=== PATIENT | male | born 2000 | race Caucasian/White ===

== ENCOUNTER 2020-04-07 18:18 | Emergency (ER) | payer BC ==
[~2020-04-07] VITALS: Ht 190 cm; Wt 73.0 kg
[2020-04-07] MEDS ORDERED: LIDOCAINE 2% VISCOUS 15 ML UDC ONE (18:27)
[2020-04-07] MEDS ORDERED: ANTACID SUSP 30 ML UDC (MYLANTA) ONE (18:27)
[2020-04-07] MEDS ORDERED: LACTATED RINGERS 1,000 ML IV ONE ×2 (18:28→18:30)
[2020-04-07] MEDS ORDERED: LIDOCAINE 2% VISCOUS 15 ML UDC PO ONE (18:30)
[2020-04-07] MEDS ORDERED: PANTOPRAZOLE 40 MG (PROTONIX) VIAL IV ONE (18:30)
[2020-04-07] MEDS ORDERED: ANTACID SUSP 30 ML UDC (MYLANTA) PO ONE (18:30)
[2020-04-07 18:36] LABS: BASOPHILS # (AUTO) 0.1 10^3/uL (0.0-0.1); BASOPHILS % (AUTO) 1 % (0-10); EOSINOPHILS # (AUTO) 0.1 10^3/uL (0.0-0.3); EOSINOPHILS % (AUTO) 1 % (0-10); HEMATOCRIT 44 % (40-54); HEMOGLOBIN 14.7 g/dL (13.3-17.7); LYMPHOCYTES # (AUTO) 1.7 10^3/uL (1.0-4.0); LYMPHOCYTES % (AUTO) 13 % (12-44); MEAN CORPUSCULAR HEMOGLOBIN 30 pg (25-34); MEAN CORPUSCULAR HGB CONC 34 g/dL (32-36); MEAN CORPUSCULAR VOLUME 88 fL (80-99); MEAN PLATELET VOLUME 10.3 fL (9.0-12.2); MONOCYTES # (AUTO) 2.2 10^3/uL (0.0-1.0); MONOCYTES % (AUTO) 17 % (0-12); NEUTROPHILS # (AUTO) 9.1 10^3/uL (1.8-7.8); NEUTROPHILS % (AUTO) 69 % (42-75); PLATELET COUNT 205 10^3/uL (130-400); WHITE BLOOD COUNT 13.2 10^3/uL (4.3-11.0)
--- NOTE | 2020-04-07 18:36 | ED Chest Pain ---
General Chief Complaint: Chest Pain Stated Complaint: CHEST PAIN Nursing Triage Note: PT STATES CP NEG FLU AND RAPID COVID YESTERDAY, Z PACK GIVEN, DENIES COUGH, FEVER OR SOB, NO SORE THROAT, PT HAD COVID IN OCTOBER BUT HIS BOSSES TESTED POSITIVE RECENTLY. Nursing Sepsis Screen: No Definite Risk Source: patient History of Present Illness Date Seen by Provider: Apr 07, 2020 Time Seen by Provider: 18:21 Initial Comments PT ARRIVES VIA POV C/O MID CHEST PAIN SINCE LAST Tuesday04/03/20 PAIN IS SEVERE WHEN HE SWALLOWS--8/10 NO PAIN AT REST AND NO PAIN RIGHT NOW. STATES HE HAS NOT BEEN ABLE TO EAT ANYTHING FOR THE LAST 3 DAYS DUE TO PAIN WITH EATING/DRINKING STATES HE HAS BEEN DRINKING FLUIDS, BUT EVEN FLUIDS CAUSE SEVERE PAIN IN HIS CHEST. NO THROAT PAIN OR ACTUAL DIFFICULTY SWALLOWING NO LOSS OF TASTE OR SMELL NO COUGH OR URI SYMPTOMS NO SHORTNESS OF BREATH NO NAUSEA/VOMITING/DIARRHEA OR ABDOMINAL PAIN NO FEVER/SWEATS/CHILLS NO HEADACHE NO BODY ACHES PT IS VOIDING A NORMAL AMOUNT NO HISTORY OF SIMILAR WENT TO [facility] YESTERDAY FOR THIS PROBLEM AND HAD A NEGATIVE RAPID COVID-19 TEST AND NEGATIVE FLU TEST, AND WAS GIVEN RX FOR ZITHROMAX Z PACK-=-NOT SURE WHAT HE WAS DX WITH OR REASON FOR ANTIBIOTICS PT HAD COVID-19 INFECTION IN OCTOBER, AND HIS BOSS'S TESTED + FOR COVID-19 TODAY. PT HAS NO MEDICAL PROBLEMS, HAS HAD NO SURGERIES OF ANY KIND, DOES NOT USE TOBACCO OR ALCOHOL OR DRUGS. PCP: [facility] IN [facility] Allergies and Home Medications Allergies Coded Allergies: No Known Drug Allergies (Unverified , 04/07/20) Home Medications Pantoprazole Sodium 40 Mg Tablet.dr, 40 MG PO DAILY Prescribed by: ANTWAN FARFAN on 04/07/202042 Sucralfate 1 Gm Tablet, 1 GM PO QID Prescribed by: ANTWAN FARFAN on 04/07/202042 Patient Home Medication List Home Medication List Reviewed: Yes Review of Systems Review of Systems Constitutional: no symptoms reported; No chills, No dizziness, No fever, No malaise, No weakness EENTM: No Symptoms Reported; No Nose Congestion, No Throat Pain Respiratory: No Symptoms Reported; Denies Cough, Denies Shortness of Air Cardiovascular: See HPI, Chest Pain; Denies Edema, Denies Irregular Heart Rate, Denies Lightheadedness, Denies Palpitations, Denies Syncope Gastrointestinal: Denies Abdominal Pain, Denies Diarrhea, Denies Nausea, Denies Vomiting; Other (HAS APPETITE, BUT NOT ABLE TO EAT DUE TO SEVERE PAIN IN MID CHEST WITH EATING OR DRINKING) Genitourinary: No Symptoms Reported Musculoskeletal: no symptoms reported; No back pain Skin: no symptoms reported Psychiatric/Neurological: No Symptoms Reported; Denies Headache Endocrine: No Symptoms Reported Hematologic/Lymphatic: No Symptoms Reported Past Ytzymbr-[id number]-Yncqpe Hx Past Med/Social Hx: Reviewed and Corrections made Patient Social History Alcohol Use: Denies Use Smoking Status: Never a Smoker Recent Infectious Disease Expo: No Past Medical History Surgeries: No Respiratory: No Cardiac: No Neurological: No Genitourinary: No Gastrointestinal: No Musculoskeletal: No Endocrine: No HEENT: No Cancer: No Psychosocial: No Integumentary: No Blood Disorders: No Physical Exam Vital Signs Vital Signs - First Documented Capillary Refill : Less Than 3 Seconds Height, Weight, BMI Height: '" Weight: lbs. oz. kg; 20.00 BMI Method: General Appearance: No Apparent Distress, WD/WN, Thin, Other (DOES NOT APPEAR ILL OR TO BE IN ANY DISCOMFORT OR DISTRESS) HEENT: PERRL/EOMI, Pharynx Normal; No Pale Conjunctivae (L), No Pale Conjunctivae (R), No Scleral Icterus (L), No Scleral Icterus (R) Neck: Normal Inspection Respiratory: Chest Non Tender, Normal Breath Sounds, No Accessory Muscle Use, No Respiratory Distress Cardiovascular: No Edema, No JVD, No Murmur, Normal Peripheral Pulses, Tachycardia Gastrointestinal: Normal Bowel Sounds, No Organomegaly, No Pulsatile Mass, Non Tender, Soft Extremity: Normal Capillary Refill, Normal Inspection, Normal Range of Motion, Non Tender, No Calf Tenderness, No Pedal Edema Neurologic/Psychiatric: Alert, Oriented x3, No Motor/Sensory Deficits, Normal Mood/Affect, purchasing coordinator II-XII Norm as Tested Skin: Normal Color, Warm/Dry; No Rash Progress/Results/Core Measures Results/Orders Lab Results Laboratory Tests Test 04/07/20 18:28 04/07/20 19:10 Range/Units White Blood Count 13.2 H 4.3-11.0 10^3/uL Red Blood Count 4.97 4.30-5.52 10^6/uL Hemoglobin 14.7 13.3-17.7 g/dL Hematocrit 44 40-54 % Mean Corpuscular Volume 88 80-99 fL Mean Corpuscular Hemoglobin 30 25-34 pg Mean Corpuscular Hemoglobin Concent 34 32-36 g/dL Red Cell Distribution Width 12.0 10.0-14.5 % Platelet Count 205 130-400 10^3/uL Mean Platelet Volume 10.3 9.0-12.2 fL Immature Granulocyte % (Auto) 0 % Neutrophils (%) (Auto) 69 42-75 % Lymphocytes (%) (Auto) 13 12-44 % Monocytes (%) (Auto) 17 H 0-12 % Eosinophils (%) (Auto) 1 0-10 % Basophils (%) (Auto) 1 0-10 % Neutrophils # (Auto) 9.1 H 1.8-7.8 10^3/uL Lymphocytes # (Auto) 1.7 1.0-4.0 10^3/uL Monocytes # (Auto) 2.2 H 0.0-1.0 10^3/uL Eosinophils # (Auto) 0.1 0.0-0.3 10^3/uL Basophils # (Auto) 0.1 0.0-0.1 10^3/uL Immature Granulocyte # (Auto) 0.1 0.0-0.1 10^3/uL Prothrombin Time 14.0 12.2-14.7 SEC INR Comment 1.0 0.8-1.4 Activated Partial Thromboplast Time 31 24-35 SEC Sodium Level 137 135-145 MMOL/L Potassium Level 3.6 3.6-5.0 MMOL/L Chloride Level 99 98-107 MMOL/L Carbon Dioxide Level 25 21-32 MMOL/L Anion Gap 13 5-14 MMOL/L Blood Urea Nitrogen 13 7-18 MG/DL Creatinine 1.03 0.60-1.30 MG/DL Estimat Glomerular Filtration Rate > 60 BUN/Creatinine Ratio 13 Glucose Level 103 70-105 MG/DL Calcium Level 9.4 8.5-10.1 MG/DL Corrected Calcium 8.5-10.1 MG/DL Magnesium Level 2.2 1.6-2.4 MG/DL Total Bilirubin 0.7 0.1-1.0 MG/DL Aspartate Amino Transf (AST/SGOT) 22 5-34 U/L Alanine Aminotransferase (ALT/SGPT) 23 0-55 U/L Alkaline Phosphatase 75 40-136 U/L Total Creatine Kinase 82 30-200 U/L Creatine Kinase MB 0.3 <6.6 NG/ML Myoglobin 23.7 10.0-92.0 NG/ML Troponin I < 0.028 <0.028 NG/ML Total Protein 8.7 H 6.4-8.2 GM/DL Albumin 4.6 H 3.2-4.5 GM/DL Amylase Level 64 25-125 U/L Lipase 9 8-78 U/L Urine Color OTHER H Urine Clarity CLEAR Urine pH 6.0 5-9 Urine Specific [place] 1.025 H 1.016-1.022 Urine Protein 1+ H NEGATIVE Urine Glucose (UA) NEGATIVE NEGATIVE Urine Ketones 1+ H NEGATIVE Urine Nitrite NEGATIVE NEGATIVE Urine Bilirubin 2+ H NEGATIVE Urine Urobilinogen 2.0 < = 1.0 MG/DL Urine Leukocyte Esterase NEGATIVE NEGATIVE Urine RBC (Auto) TRACE-L NEGATIVE Urine RBC RARE /HPF Urine WBC 0-2 /HPF Urine Crystals PRESENT H /LPF Urine Amorphous Sediment MOD SUE URATES H /LPF Urine Bacteria TRACE /HPF Urine Casts NONE /LPF Urine Mucus LARGE H /LPF Urine Culture Indicated NO Urine Opiates Screen NEGATIVE NEGATIVE Urine Oxycodone Screen NEGATIVE NEGATIVE Urine Methadone Screen NEGATIVE NEGATIVE Urine Propoxyphene Screen NEGATIVE NEGATIVE Urine Barbiturates Screen NEGATIVE NEGATIVE Ur Tricyclic Antidepressants Screen NEGATIVE NEGATIVE Urine Phencyclidine Screen NEGATIVE NEGATIVE Urine Amphetamines Screen NEGATIVE NEGATIVE Urine Methamphetamines Screen NEGATIVE NEGATIVE Urine Benzodiazepines Screen NEGATIVE NEGATIVE Urine Cocaine Screen NEGATIVE NEGATIVE Urine Cannabinoids Screen NEGATIVE NEGATIVE My Orders Orders - ANTWAN FARFAN DO Ed Iv/Invasive Line Start (04/07/20 18:22) Ekg Tracing (04/07/20 18:22) Monitor-Rhythm Ecg Trace Only (04/07/20 18:22) Amylase (04/07/20 18:22) Cbc With Automated Diff (04/07/20 18:22) Comprehensive Metabolic Panel (04/07/20 18:22) Creatine Kinase (04/07/20 18:22) Creatine Kinase Mb (04/07/20 18:22) Drug Screen Stat (Urine) (04/07/20 18:22) Lipase (04/07/20 18:22) Magnesium (04/07/20 18:22) Protime With Inr (04/07/20 18:22) Partial Thromboplastin Time (04/07/20 18:22) Ua Culture If Indicated (04/07/20 18:22) Myoglobin Serum (04/07/20 18:22) Troponin I (04/07/20 18:22) Chest 1 View, Ap/Pa Only (04/07/20 18:22) Pantoprazole Injection (Protonix Injecti (04/07/20 18:30) Lidocaine 2% Viscous 15 Ml (Xylocaine Vi (04/07/20 18:30) Antacid Suspension (Mylanta Suspension (04/07/20 18:30) Ed Iv/Invasive Line Start (04/07/20 18:30) Lactated Ringers (Lr 1000 Ml Iv Solution (04/07/20 18:30) Antacid Suspension (Mylanta Suspension (04/07/20 18:27) Lidocaine 2% Viscous 15 Ml (Xylocaine Vi (04/07/20 18:27) Lactated Ringers (Lr 1000 Ml Iv Solution (04/07/20 18:28) Ct Chest W (04/07/20 19:19) Iohexol Injection (Omnipaque 350 Mg/Ml 1 (04/07/20 19:30) Received Contrast (Hold Metformin- Contr (04/07/20 19:30) Ns (Ivpb) (Sodium Chloride 0.9% Ivpb Bag (04/07/20 19:30) Medications Given in ED Current Medications Medications Dose Ordered Sig/Ajith Route Start Time Stop Time Status Last Admin Dose Admin Al Hydrox/Mg Hydrox/Simethicone 30 ml ONCE ONCE PO 04/07/20 18:30 04/07/20 18:31 DC 04/07/20 18:34 30 ML Iohexol 75 ml ONCE ONCE IV 04/07/20 19:30 04/07/20 19:31 DC 04/07/20 19:53 75 ML Lactated Ringer's 1,000 ml @ 0 mls/hr Q0M ONCE IV 04/07/20 18:30 04/07/20 18:31 DC 04/07/20 18:36 1,000 MLS/HR Lidocaine HCl 15 ml ONCE ONCE PO 04/07/20 18:30 04/07/20 18:31 DC 04/07/20 18:33 15 ML Pantoprazole 40 mg ONCE ONCE IV 04/07/20 18:30 04/07/20 18:31 DC 04/07/20 18:36 40 MG Sodium Chloride 100 ml ONCE ONCE IV 04/07/20 19:30 04/07/20 19:31 DC 04/07/20 19:53 80 ML Vital Signs/I&O 04/07/20 04/07/20 18:22 18:22 Temp 36.6 Pulse 106 Resp 18 B/P (MAP) 137/96 (110) Pulse Ox 100 O2 Delivery Room Air Room Air Blood Pressure Mean: 110 Progress Progress Note : Progress Note GIVEN GI COCKTAIL, PROTONIX AND IV FLUIDS IMMEDIATE IMPROVEMENT WITH GI COCKTAIL Initial ECG Impression Date: Apr 07, 2020 Initial ECG Impression Time: 18:21 Initial ECG Rate: 112 Initial ECG Rhythm: S.Tach Diagnostic Imaging Comments CXR--PER RADIOLOGIST REPORT AT 1919 MPRESSION: Negative chest. CT CHEST--PER RADIOLOGIST REPORT AT 2034 IMPRESSION: Questionable thickening of the lower esophagus. Consider upper gastrointestinal study or endoscopy as clinically warranted. The lungs are clear. There is no pleural fluid. There is no significant adenopathy or overt mass lesion. Reviewed: Reviewed by Me Departure Communication (Admissions) 2035--SPOKE WITH DR. MANRIQUEZ, AGREES WITH PLAN OF CARE, WILL SEE IN OFFICE AND ARRANGE FOR OUTPATIENT EGD Impression Primary Impression: Gastroesophageal reflux disease Additional Impression: Esophagitis Disposition: HOME, SELF-CARE Condition: Improved Departure-Patient Inst. Referrals: ERVIN MANRIQUEZ DO Patient Instructions: Acid Reflux and Gastroesophageal Reflux Disease in Adults, Chest Pain That Is Not Caused by the Heart (DC) Add. Discharge Instructions: SOFT FOODS AND PROTEIN SHAKES LOTS OF CLEAR LIQUIDS--WATER, BROTH, JELLO, GATORADE NO COFFEE, POP OR TEA FOLLOW UP WITH DR. MANRIQUEZ THIS WEEK FOR FURTHER CARE All discharge instructions reviewed with patient and/or family. Voiced understanding. Scripts Sucralfate (Carafate) 1 Gm Tablet 1 GM PO QID, #60 TAB Prov: ANTWAN FARFAN K DO 04/07/20 Pantoprazole Sodium (Protonix) 40 Mg Tablet.dr 40 MG PO DAILY, #15 TAB Prov: ANTWAN FARFAN K DO 04/07/20 NAHEEDANTWAN Russ DO Apr 07, 2020 18:36
[2020-04-07 18:46] LABS: ALBUMIN 4.6 GM/DL (3.2-4.5); CHLORIDE 99 MMOL/L (98-107); POTASSIUM 3.6 MMOL/L (3.6-5.0); SODIUM 137 MMOL/L (135-145)
[2020-04-07 18:47] LABS: AMYLASE 64 U/L (25-125); CALCIUM 9.4 MG/DL (8.5-10.1)
[2020-04-07 18:48] LABS: GLUCOSE 103 MG/DL (70-105); TOTAL PROTEIN 8.7 GM/DL (6.4-8.2)
[2020-04-07 18:49] LABS: CARBON DIOXIDE 25 MMOL/L (21-32)
[2020-04-07 18:50] LABS: BILIRUBIN,TOTAL 0.7 MG/DL (0.1-1.0)
[2020-04-07 18:52] LABS: ALKALINE PHOSPHATASE 75 U/L (40-136); CREATININE SERUM 1.03 MG/DL (0.60-1.30); GFR ESTIMATED > 60
[2020-04-07 18:53] LABS: BUN/CREATININE RATIO 13
[2020-04-07 18:55] LABS: ALANINE AMINOTRANSFERASE 23 U/L (0-55); MAGNESIUM 2.2 MG/DL (1.6-2.4)
[2020-04-07 18:56] LABS: CREATINE KINASE 82 U/L (30-200); LIPASE 9 U/L (8-78)
[2020-04-07 19:03] LABS: CREATINE KINASE MB 0.3 NG/ML (<6.6)
--- NOTE | 2020-04-07 19:18 | Diagnostic Imaging Report ---
INDICATION: Chest pain Frontal chest obtained at 0656 p.m. Heart and mediastinal silhouette are normal in appearance. The lungs are clear. There is no pneumothorax or pleural fluid. IMPRESSION: Negative chest. Dictated by: Dictated on workstation # [id number]
[2020-04-07 19:26] LABS: CLARITY,URINE CLEAR; COLOR,URINE OTHER; GLUCOSE, URINE (UA) NEGATIVE (NEGATIVE); KETONES,URINE 1+ (NEGATIVE); LEUKOCYTE ESTERASE ,URINE NEGATIVE (NEGATIVE); NITRITE,URINE NEGATIVE (NEGATIVE); PROTEIN,URINE 1+ (NEGATIVE)
[2020-04-07] MEDS ORDERED: IOHEXOL 350 MG/ML 100 ML (OMNIPAQUE 350) VIAL IV ONE (19:30)
[2020-04-07] MEDS ORDERED: HOLD METFORMIN - RECEIVED CONTRAST 20 ML VIAL IV SCH (19:30)
[2020-04-07] MEDS ORDERED: NS 100 ML (IVPB) BAG IV ONE (19:30)
[2020-04-07 19:39] LABS: AMORPHOUS SEDIMENT,UR MOD AMOR URATES /LPF; BACTERIA,URINE TRACE /HPF; BILIRUBIN,URINE 2+ (NEGATIVE); RBC,URINE RARE /HPF; WBC,URINE 0-2 /HPF
[2020-04-07 19:43] LABS: AMPHETAMINE SCREEN, URINE NEGATIVE (NEGATIVE); BARBITURATE SCREEN URINE NEGATIVE (NEGATIVE); BENZODIAZEPINES SCREEN URINE NEGATIVE (NEGATIVE); CANNABINOID SCREEN, URINE NEGATIVE (NEGATIVE); COCAINE SCREEN URINE NEGATIVE (NEGATIVE); METHADONE STAT NEGATIVE (NEGATIVE); METHAMPHETAMINE SCREEN URINE S NEGATIVE (NEGATIVE); OPIATE SCREEN URINE NEGATIVE (NEGATIVE); OXYCODONE STAT NEGATIVE (NEGATIVE); PROPOXYPHENE STAT NEGATIVE (NEGATIVE); TRICYCLIC ANTIDEPRESSANTS SCRE NEGATIVE (NEGATIVE)
--- NOTE | 2020-04-07 20:20 | Diagnostic Imaging Report ---
INDICATION: Chest pain. TECHNIQUE: Multiple contiguous axial images were obtained through the chest after administration of intravenous contrast. Auto Exposure Controls were utilized during the CT exam to meet ALARA standards for radiation dose reduction. COMPARISON: There is no prior chest CT for comparison. There is no pleural or pericardial effusion. Lung parenchymal windows show no infiltrates or pulmonary nodules. There is residual thymic tissue in the anterior mediastinum. There are minimal nodes in the mediastinum which are not of pathologic size. There is no large hilar node. There is no evidence of pulmonary emboli. Thoracic aorta is normal in caliber. There is some questionable thickening of the lower esophagus. IMPRESSION: Questionable thickening of the lower esophagus. Consider upper gastrointestinal study or endoscopy as clinically warranted. The lungs are clear. There is no pleural fluid. There is no significant adenopathy or overt mass lesion. Dictated by: Dictated on workstation # [id number]
[2020-04-07] MEDS ORDERED: SUCR1TAB36 PO (20:43)
[2020-04-07] MEDS ORDERED: PANT40TA2 PO (20:43)
[2020-04-07 20:56] VITALS: BP 131/77
== END 2020-04-07 20:56 | disposition home or self-care (01) ==
LOC: ER 18:23
DX: K21.9 Gastro-esophageal reflux disease without esophagitis (principal); K20.90 Esophagitis, unspecified without bleeding
CPT/HCPCS: 36415; 71045; 71260; 80053; 80306; 81000; 82150; 82550; 82553; 83690; 83735; 83874; 84484; 85025; 85610; 85730; 93005; 93041

== ENCOUNTER 2020-05-01 05:31 | Outpatient (RCR) | payer BC ==
[~2020-05-01] VITALS: Ht 190.5 cm; Wt 72.6 kg
[~2020-05-01 05:31] MED LIST: PANT40TA2 PO; SUCR1TAB36 PO
== END 2020-05-01 15:23 | disposition home or self-care (01) ==
LOC: PREOP 05:31
PROVIDERS: ATTEND Surgery
DX: Z01.812 Encounter for preprocedural laboratory examination (principal); K21.9 Gastro-esophageal reflux disease without esophagitis; Z20.822 Contact with and (suspected) exposure to COVID-19
CPT/HCPCS: 87635

== ENCOUNTER 2020-05-05 07:46 | Day surgery (SDC) | payer BC ==
[~2020-05-05] VITALS: Ht 190.5 cm; Wt 72.1 kg
[2020-05-05] VITALS (7 sets, daily range): BP systolic 93–123; BP diastolic 49–85
[2020-05-05] MEDS ORDERED: LACTATED RINGERS 1,000 ML IV STA (07:56)
[2020-05-05] MEDS ORDERED: HURRICAINE EXT TUBE (BENZOCAINE) XX PRN (08:00)
[2020-05-05] MEDS ORDERED: LACTATED RINGERS 1,000 ML IV ONE (08:01)
--- NOTE | 2020-05-05 08:32 | Progress Note-Pre Operative ---
Pre-Operative Progress Note H&P Reviewed The H&P was reviewed, patient examined and no changes noted. Time Seen by Provider: 08:27 Date H&P Reviewed: May 05, 2020 Time H&P Reviewed: 08:28 Pre-Operative Diagnosis: Chronic Gastritis ERVIN MANRIQUEZ DO May 05, 2020 08:32
[2020-05-05] MEDS ORDERED: proPOfol 200 MG/20 ML (DIPRIVAN) VIAL IV ONE (09:20)
[2020-05-05] MEDS ORDERED: MIDAZOLAM 2 MG/2 ML (VERSED) VIAL ONE (09:20)
--- NOTE | 2020-05-05 09:55 | Progress Note-Post Operative ---
Post-Operative Progess Note Surgeon (s)/Record Clerk Salesperson (s) Surgeon ERVIN MANRIQUEZ DO Record Clerk Salesperson: none Pre-Operative Diagnosis Chronic Gastritis Post-Operative Diagnosis Same Esophagitis Procedure & Operative Findings Date of Procedure 05/05/20 Procedure Performed/Findings EGD with bx Anesthesia Type IV sedation by Anesthesia Estimated Blood Loss Estimated blood loss (mL): scant Specimens/Packing Specimens Removed antral bx body of stomach bx GE jxn bx ERVIN MANRIQUEZ DO May 05, 2020 09:55
--- NOTE | 2020-05-05 09:56 | Endoscopy Discharge Instruct ---
Endo Procedure/Findings Findings 1.: Gastritis 2.: Other Findings (esophagitis) Discharge Instructions - Activity: You might feel a little sleepy until tomorrow. This is due to the medicine you received to relax you. Until tomorrow, you should: NOT drive a car, operate machinery or power tools. NOT drink any alcoholic beverages. NOT make any important decisions or sign importortant papers. Do not return to work until tomorrow, unless otherwise instructed. Resume previous activities tomorrow. Diet: Start by taking liquids. If you tolerate liquids, advance to solid food. 1.: EGD in 1 year Notify Physician - If you experience excessive bleeding, unusual abdominal pain, fever, or chest pain, contact your doctor immediately. ERVIN MANRIQUEZ DO May 05, 2020 09:56
--- NOTE | 2020-05-05 11:34 | Anesthesia-General Post-Op ---
MAC Patient Condition Mental Status/LOC: Same as Preop Cardiovascular: Satisfactory Nausea/Vomiting: Absent Respiratory: Satisfactory Pain: Controlled Complications: Absent Post Op Complications Complications None Follow Up Care/Instructions Patient Instructions None needed. Anesthesiology Discharge Order Discharge Order Patient was seen after the procedure and he was doing well, no complaints, stable vital signs, no apparent adverse anesthesia problems. NELLA ROCHA DO May 05, 2020 11:34
--- NOTE | 2020-05-05 19:35 | OPERATIVE REPORT ---
DATE OF SERVICE: 05/05/2020 PREOPERATIVE DIAGNOSIS: Gastritis. 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 PROCEDURE: EGD with biopsy. SURGEON: Feliz Moran DO BOX TOE BUFFER: None. ANESTHESIA: IV sedation by the anesthesiologist. SPECIMEN: Biopsy of the antrum, biopsy of body of stomach, biopsy of the GE junction. BLOOD LOSS: Scant. FLUIDS: Per anesthesia. POSTOPERATIVE CONDITION: Stable. INDICATION FOR PROCEDURE: The patient is a 20-year-old male who has been having some pretty severe gastritis and GERD symptoms and needed a workup. FINDINGS: The patient had some mild erythema in the stomach and had what looked like almost Cartagena's esophagus at the GE junction. PROCEDURE NOTE: After informed consent was obtained, the patient was brought to the endoscopy suite, placed in bed in left lateral decubitus position. He was administered IV sedation by the anesthesiologist who then monitored his vitals the entire time, heart rate, blood pressure and pulse ox. The scope was inserted down the mouth through the esophagus into the stomach. Upon entering the stomach, noted some inflammation, took a picture of the antrum, pushing the duodenum. Duodenum looked fine. Pulled back and did a biopsy of the antrum. Retroflexed the scope, did not really have a hiatal hernia, but seemed to have a lot of inflammation in the body of stomach, took another picture of this and then did a biopsy of body of stomach and then pulled the scope into the GE junction and took 2 biopsies of the GE junction, pushed the scope back into the stomach, suctioned all the air out and then pulled the scope up the esophagus and out of the mouth. The patient tolerated the procedure, recovered in endoscopy suite. Job ID: [id number] DocumentID: [id number] Dictated Date: 05/05/2020 16:09:43 Time Study Observer Date: 05/05/2020 19:34:36 Dictated By: FELIZ MORAN DO
== END 2020-05-05 10:32 | disposition home or self-care (01) ==
LOC: ENDO 07:46
PROVIDERS: ATTEND Surgery
DX: K29.50 Unspecified chronic gastritis without bleeding (principal); K21.00 Gastro-esophageal reflux disease with esophagitis, without bleeding

== ENCOUNTER 2022-05-02 07:27 | Emergency (ER) | payer BC ==
[~2022-05-02] VITALS: Ht 196 cm; Wt 82.0 kg
--- NOTE | 2022-05-02 07:50 | ED Integumentary General ---
General Chief Complaint: Bite-Animal/Human/Insect Stated Complaint: SPIDER BITE, SWOLLEN THROAT Nursing Triage Note: Patient ambulatory to ER w c/o spider bite. Patient states symptoms started on . Patient went to urgent care on Tuesday morning and they gave him a steroid shot with zpack. Patient states he is swollen from the neck down to his chest. Primary doc prescribed patient Bactrim which he started on Tuesday. Source: patient, family () Exam Limitations: no limitations History of Present Illness Date Seen by Provider: May 02, 2022 Time Seen by Provider: 07:35 Initial Comments Patient is a 22-year-old male who presents to the emergency room with a chief complaint of swelling in his throat, discomfort with swallowing, swelling in the right side of his neck down into his chest wall that he relates to a recent "spider bite". Patient states that he woke up Tuesday morning and felt something on the right side of his neck. He states shortly afterwards he noticed a small wound that he suspected may have been due to a spider. He went to urgent care and states that he was given a "steroid shot" and prescribed a Z-Felipe. His family physician called him back later and changed his antibiotics to Bactrim which she started taking Tuesday, 2 days ago. He states he woke up this morning with more swelling. He also states on Tuesday he noticed, before antibiotics that he had a "rash" that was located on his chest wall and arms. That seems to have improved. He did take 800 mg of ibuprofen last night. Nothing this morning. He denies fever, shortness of breath, productive cough. No rhinorrhea, congestion, earache. No diarrhea, nausea or vomiting. Otherwise healthy individual on no daily medications no known drug allergies. All other review of systems reviewed and negative except as stated. Timing/Duration: other (2 days) Severity: mild Possible Cause: insect sting Associated Symptoms: fever ("low grade, 100"), rash, sore throat Allergies and Home Medications Allergies Coded Allergies: No Known Drug Allergies (Unverified , 04/07/20) Patient Home Medication List Home Medication List Reviewed: Yes Pantoprazole Sodium (Protonix) 40 Mg Tablet.dr, 40 MG PO DAILY Prescribed by: ANTWAN FARFAN on 04/07/202042 Sucralfate (Carafate) 1 Gm Tablet, 1 GM PO QID Prescribed by: ANTWAN FARFAN on 04/07/202042 Review of Systems Review of Systems Constitutional: see HPI EENTM: throat swelling Respiratory: no symptoms reported Cardiovascular: no symptoms reported Gastrointestinal: no symptoms reported Genitourinary: no symptoms reported Musculoskeletal: neck pain (right neck) Skin: rash, other (insect bite or sting right neck with swelling) All Other Systems Reviewed Negative Unless Noted: Yes Past Ahwdohv-Olkqij-Vbxqyw Hx Patient Social History Tobacco Use?: No Substance use?: No Alcohol Use?: No Seasonal Allergies Seasonal Allergies: No Past Medical History Surgeries: No Respiratory: No Cardiac: Yes Heart Murmur Neurological: No Genitourinary: No Gastrointestinal: No Musculoskeletal: No Endocrine: No HEENT: No Cancer: No Psychosocial: No Integumentary: No Blood Disorders: No Physical Exam Vital Signs Vital Signs - First Documented 05/02/22 07:37 Temp 35.8 Pulse 96 Resp 20 B/P (MAP) 138/101 (113) Pulse Ox 100 O2 Delivery Room Air Capillary Refill : Less Than 3 Seconds General Appearance: WD/WN, no apparent distress HEENT: PERRL/EOMI, normal ENT inspection, TMs normal, pharynx normal Neck: full range of motion, other (swelling right neck inferior to ramus of mandble; small papule noted 2 fb below the mandible with erythema surrounding (consistent with bite or sting), slight induration, no fluctuance - no discrete abscess palpated) Cardiovascular: regular rate, rhythm, tachycardia (103) Respiratory: lungs clear, normal breath sounds, no respiratory distress, no accessory muscle use, other (patient states "swelling" in chest to zyphoid process (I do not see this - this "swelling" is non pitting, if present) Gastrointestinal: non tender, soft Extremities: normal range of motion, normal inspection, normal capillary refill Neurologic/Psychiatric: alert, normal mood/affect, oriented x 3, other (seems slightly anxious) Skin: normal color, warm/dry, other (very mild erythema to right lateral neck just inferior to mandible and extending caudal almost to clavical) Skin Problem Location: neck (right) Skin Problem Character: erythema, papules (single papule - ) Lymphatic: no adenopathy Progress/Results/Core Measures Results/Orders Lab Results Laboratory Tests Test 05/02/22 07:55 Range/Units White Blood Count 9.3 4.3-11.0 10^3/uL Red Blood Count 5.48 4.30-5.52 10^6/uL Hemoglobin 16.3 13.3-17.7 g/dL Hematocrit 48 40-54 % Mean Corpuscular Volume 88 80-99 fL Mean Corpuscular Hemoglobin 30 25-34 pg Mean Corpuscular Hemoglobin Concent 34 32-36 g/dL Red Cell Distribution Width 12.3 10.0-14.5 % Platelet Count 227 130-400 10^3/uL Mean Platelet Volume 10.9 9.0-12.2 fL Immature Granulocyte % (Auto) 0 % Neutrophils (%) (Auto) 57 42-75 % Lymphocytes (%) (Auto) 21 12-44 % Monocytes (%) (Auto) 15 H 0-12 % Eosinophils (%) (Auto) 6 0-10 % Basophils (%) (Auto) 1 0-10 % Neutrophils # (Auto) 5.3 1.8-7.8 10^3/uL Lymphocytes # (Auto) 1.9 1.0-4.0 10^3/uL Monocytes # (Auto) 1.4 H 0.0-1.0 10^3/uL Eosinophils # (Auto) 0.6 H 0.0-0.3 10^3/uL Basophils # (Auto) 0.1 0.0-0.1 10^3/uL Immature Granulocyte # (Auto) 0.0 0.0-0.1 10^3/uL Sodium Level 140 135-145 MMOL/L Potassium Level 3.5 L 3.6-5.0 MMOL/L Chloride Level 105 98-107 MMOL/L Carbon Dioxide Level 23 21-32 MMOL/L Anion Gap 12 5-14 MMOL/L Blood Urea Nitrogen 10 7-18 MG/DL Creatinine 1.10 0.60-1.30 MG/DL Estimat Glomerular Filtration Rate 97 BUN/Creatinine Ratio 9 Glucose Level 89 70-105 MG/DL Calcium Level 9.3 8.5-10.1 MG/DL My Orders Orders - JUANA BECKHAM MD Ed Iv/Invasive Line Start (05/02/22 08:02) Cbc With Automated Diff (05/02/22 08:02) Basic Metabolic Panel (05/02/22 08:02) Blood Culture (05/02/22 08:02) Ketorolac Injection (Toradol Injection) (05/02/22 08:45) Medications Given in ED Current Medications Medications Dose Ordered Sig/Ajith Route Start Time Stop Time Status Last Admin Dose Admin Ketorolac Tromethamine 30 mg ONCE ONCE IVP 05/02/22 08:45 05/02/22 08:46 DC 05/02/22 08:46 30 MG Vital Signs/I&O 05/02/22 07:37 Temp 35.8 Pulse 96 Resp 20 B/P (MAP) 138/101 (113) Pulse Ox 100 O2 Delivery Room Air Blood Pressure Mean: 113 Progress Progress Note : Time: 09:09 Progress Note Patient seen and examined by me, 22-year-old with insect bite/sting to the right neck. Evaluation today includes physical exam, CBC, basic metabolic panel and blood culture. Clinically patient looks well, slightly tachycardic with a heart rate of 103. Good blood pressure. Normal oxygen saturations on room air at 99% with no increased work of breathing or respiratory distress. No voice change, hoarseness although the patient states that he feels like his throat is "closing". Intraoral exam is unremarkable with no evidence of swelling of the floor the mouth or posterior pharynx. No fevers chills reported. Clinical suspicion for sepsis very low. Differential diagnosis based on history and physical, superficial abscess, cellulitis, bacteremia. Based on labs, physical exam he has a superficial abscess to the right side of the neck that his currently treated with Bactrim. Suspect that this "swelling" he is experiencing is as a result of his infection, he has not quite had 48 hours of antibiotics. CBC is normal, basic metabolic panel is normal. Consideration for CT scan of the neck with IV contrast however at this time history, physical exam and labs do not support the need. He is treated with 30 mg IV Toradol and has some improvement of his discomfort. I have given him strict return precautions, things to look for and to return for to include breathing difficulty swallowing difficulties voice change and high fever. He and his significant other who is at the bedside verbalized understanding of the discharge instructions. I have advised him to follow-up with his primary care doctor tomorrow or Tuesday. All questions are sought and answered. Patient is stable for discharge Departure Impression Primary Impression: Cellulitis of neck Disposition: HOME, SELF-CARE Condition: Improved Departure-Patient Inst. Decision time for Depature: 09:12 Referrals: TIERA JONES (PCP/Family) Primary Care Physician Patient Instructions: Cellulitis (Skin Infection), Adult (DC) Add. Discharge Instructions: Continue to take the Bactrim antibiotic as directed. Please be sure and finish the entire course Drink lots of water while you are taking this antibiotic. You can take [id number] ibuprofen, 3 to 4 tablets every 8 hours as needed for pain, swelling and fever. Always take ibuprofen with food. You can alternate this with [id number]-neo-owdkyfr Tylenol extra strength 2 tablets. If you develop worsening swelling, redness, high fever or have increased pain with swallowing, a voice change such as hoarseness please return to the emergency room for reevaluation. You can put a little jogq-[id number]-[id number] cortisone cream on the area on your right neck for itching/inflammation. Please follow packaging instructions. JUANA BECKHAM MD May 02, 2022 07:50
[2022-05-02] MEDS ORDERED: IBUPROFEN 800 MG (MOTRIN) TAB PO ONE (08:15)
[2022-05-02 08:24] LABS: BASOPHILS # (AUTO) 0.1 10^3/uL (0.0-0.1); BASOPHILS % (AUTO) 1 % (0-10); EOSINOPHILS # (AUTO) 0.6 10^3/uL (0.0-0.3); EOSINOPHILS % (AUTO) 6 % (0-10); HEMATOCRIT 48 % (40-54); HEMOGLOBIN 16.3 g/dL (13.3-17.7); LYMPHOCYTES # (AUTO) 1.9 10^3/uL (1.0-4.0); LYMPHOCYTES % (AUTO) 21 % (12-44); MEAN CORPUSCULAR HEMOGLOBIN 30 pg (25-34); MEAN CORPUSCULAR HGB CONC 34 g/dL (32-36); MEAN CORPUSCULAR VOLUME 88 fL (80-99); MEAN PLATELET VOLUME 10.9 fL (9.0-12.2); MONOCYTES # (AUTO) 1.4 10^3/uL (0.0-1.0); MONOCYTES % (AUTO) 15 % (0-12); NEUTROPHILS # (AUTO) 5.3 10^3/uL (1.8-7.8); NEUTROPHILS % (AUTO) 57 % (42-75); PLATELET COUNT 227 10^3/uL (130-400); WHITE BLOOD COUNT 9.3 10^3/uL (4.3-11.0)
[2022-05-02 08:34] LABS: POTASSIUM 3.5 MMOL/L (3.6-5.0)
[2022-05-02 08:35] LABS: CALCIUM 9.3 MG/DL (8.5-10.1)
[2022-05-02 08:39] LABS: CREATININE SERUM 1.1 MG/DL (0.60-1.30)
[2022-05-02] MEDS ORDERED: KETOROLAC 30 MG/ML VIAL IVP ONE (08:45)
[2022-05-02 09:33] VITALS: BP 126/88
== END 2022-05-02 09:38 | disposition home or self-care (01) ==
LOC: EDUNIT# 07:27 → ER 07:29
DX: L03.221 Cellulitis of neck (principal); R00.0 Tachycardia, unspecified; Z28.310 Unvaccinated for COVID-19
CPT/HCPCS: 36415; 80048; 85025; 87040